=== PATIENT | male | born 1975 | race Caucasian/White ===

== ENCOUNTER 2017-01-20 18:58 | Emergency (ER) | payer SELFPAY ==
[~2017-01-20] VITALS: Ht 188 cm; Wt 127.0 kg
[2017-01-20] MEDS ORDERED: ONDANSETRON HCL 4 MG/2 ML VIAL IV ONE (19:45)
[2017-01-20] MEDS ORDERED: KETOROLAC TROMETH 30 MG/ML 1ML VIAL IV ONE (19:45)
[2017-01-20] MEDS ORDERED: HYDROmorphone HCL 2 MG/ML VL IV ONE (19:45)
[2017-01-20 20:15] VITALS: BP 156/84
[2017-01-20] MEDS ORDERED: HYDROmorphone HCL 2 MG/ML VL IM ONE (22:15)
== END 2017-01-21 00:19 | disposition home or self-care (01) ==
LOC: ER 19:11
DX: M54.16 Radiculopathy, lumbar region (principal); F17.210 Nicotine dependence, cigarettes, uncomplicated
CPT/HCPCS: 72131; 94761; 96372; 96374; 96375; 99284; J1170; J1885; J2405